=== PATIENT | male | born 1965 | race Caucasian/White ===

== ENCOUNTER 2018-10-18 09:49 | Inpatient (IN) ==
--- NOTE | 2018-10-18 10:02 | Emergency Department Note ---
Disposition Clinical Impression: Numbness and tingling, Weakness Disposition: Admitted As Inpatient Condition: Fair Time of Disposition: 18:16 General Adult HPI - General Chief complaint: ED Neuro Symptoms/Deficit Stated complaint: left side numbness Time Seen by Provider: 10/18/18 09:56 - Related Data Home Medications Medication Instructions Recorded Confirmed Gemfibrozil 10/18/18 PHENobarbital 32.4 mg PO BID 10/18/18 10/18/18 Allergies Allergy/AdvReac Type Severity Reaction Status Date / Time No Known Allergies Allergy Verified 10/18/18 10:10 Course Vital Signs Temperature 98.9 F 10/18/18 10:01 Pulse Rate 80 10/18/18 10:01 Respiratory Rate 16 10/18/18 10:01 Blood Pressure 158/107 10/18/18 10:01 O2 Sat by Pulse Oximetry 98 10/18/18 10:01 Temperature 98.0 F 10/18/18 17:44 Pulse Rate 72 10/18/18 17:44 Respiratory Rate 16 10/18/18 17:44 Blood Pressure 175/91 10/18/18 17:44 O2 Sat by Pulse Oximetry 96 10/18/18 17:44 Oxygen Delivery Oxygen Delivery Room Air Medical Decision Making - Lab Data Result diagrams: 10/18/18 10:13 10/18/18 10:13 Lab Results 10/18/18 10/18/18 10/18/18 Range/Units 09:57 10:13 10:13 WBC 11.0 (4.3-11.1) K/mcL RBC 4.83 (4.19-5.50) M/mcL Hgb 15.4 (12.9-16.9) g/dL Hct 44.4 (37.5-50.1) % MCV 91.9 (83.0-100.0) fL MCH 31.9 (28.0-33.3) pg MCHC 34.7 (31.6-35.5) g/dL RDW 12.8 (11.5-14.5) % Plt Count 318 (140-400) K/mcL MPV 9.7 (9.4-12.4) fL PT 12.5 H (9.4-12.1) Seconds INR 1.1 APTT 38.0 H (26.0-36.0) Seconds Sodium (136-145) mEq/L Potassium (3.5-5.1) mEq/L Chloride (98-107) mEq/L Carbon Dioxide (23-29) mEq/L BUN (6-20) mg/dL Creatinine (0.70-1.30) mg/dL Est GFR ( Amer) (> 60) Est GFR (Non-Af Amer) (> 60) BUN/Creatinine Ratio (6-26) Glucose (70-105) mg/dL POC Glucose 139 H (70-99) mg/dL Calculated Osmolality (280-300) Calcium (8.6-10.3) mg/dL Total Bilirubin (0.3-1.0) mg/dL Direct Bilirubin (0.0-0.2) mg/dL Indirect Bilirubin (0.0-1.2) mg/dL AST (13-39) Units/L ALT (7-52) Units/L Alkaline Phosphatase (34-104) Units/L Troponin I (< 0.04) ng/mL Serum Total Protein (6.4-8.9) g/dL Albumin (3.5-5.7) g/dL Globulin (2.4-3.5) g/dL Albumin/Globulin Ratio (1.1-2.2) 10/18/18/ Range/Units 10:13 10:13 WBC (4.3-11.1) K/mcL RBC (4.19-5.50) M/mcL Hgb (12.9-16.9) g/dL Hct (37.5-50.1) % MCV (83.0-100.0) fL MCH (28.0-33.3) pg MCHC (31.6-35.5) g/dL RDW (11.5-14.5) % Plt Count (140-400) K/mcL MPV (9.4-12.4) fL PT (9.4-12.1) Seconds INR APTT (26.0-36.0) Seconds Sodium 138 (136-145) mEq/L Potassium 3.9 (3.5-5.1) mEq/L Chloride 105 (98-107) mEq/L Carbon Dioxide 25 (23-29) mEq/L BUN 14 (6-20) mg/dL Creatinine 0.87 (0.70-1.30) mg/dL Est GFR ( Amer) > 60 (> 60) Est GFR (Non-Af Amer) > 60 (> 60) BUN/Creatinine Ratio 16 (6-26) Glucose 135 H (70-105) mg/dL POC Glucose (70-99) mg/dL Calculated Osmolality 289 (280-300) Calcium 9.8 (8.6-10.3) mg/dL Total Bilirubin 0.3 (0.3-1.0) mg/dL Direct Bilirubin 0.0 (0.0-0.2) mg/dL Indirect Bilirubin 0.3 (0.0-1.2) mg/dL AST 10 L (13-39) Units/L ALT 10 (7-52) Units/L Alkaline Phosphatase 132 H (34-104) Units/L Troponin I < 0.03 (< 0.04) ng/mL Serum Total Protein 7.5 (6.4-8.9) g/dL Albumin 4.7 (3.5-5.7) g/dL Globulin 2.8 (2.4-3.5) g/dL Albumin/Globulin Ratio 1.7 (1.1-2.2) Attestation Statement - Attestation Attestation: I reviewed the residents documentation and agree with the residents assessment and plan of care. I have personally had face to face time with the patient. (Brief History, Brief Exam, and MDM) I personally supervised and was present for the coreas/critical portions of the following procedures completed by the resident: (add procedures performed here). [id number] time provided Patient arrives in the care of family by EMS. He complains of numbness, ting ling "like my left side is asleep" that he noticed upon awakening 4 hours ago. He went to bed in a normal state of health 7 hours prior to arrival. The patient appears in no acute distress on exam. Stroke workup initiated without activation of a stroke alert 15:00: The patient has progression of his left-sided weakness. He now has decreased left upper extremity strength. Both the admitting neurologist and the admitting hospitalist are aware. Both the neurologist and the admitting hospita list have discussed the findings of the MRI and agreed to admit to our facility for further intervention
--- NOTE | 2018-10-18 10:22 | Emergency Department Note ---
Disposition Clinical Impression: Numbness and tingling, Weakness Disposition: Admitted As Inpatient Condition: Fair Forms: ED Satisfaction Letter Time of Disposition: 12:42 Neuro HPI - General Chief Complaint: ED Neuro Symptoms/Deficit Stated Complaint: left side numbness Time Seen by Provider: 10/18/18 09:56 Source: patient Mode of arrival: EMS Limitations: no limitations Nursing Notes Reviewed: Yes Vital Signs Reviewed: Yes - History of Present Illness HPI Narrative: Patient is a 53-year-old male whose presenting with new onset left-sided numbness and tingling. Patient with history of multiple brain masses requiring craniotomy 3 with the last intracranial resection in 2018. He is followed at [facility]. Patient states that he went to bed around approximately 0 300, at that point in time he had no left-sided numbness or tingling. He then woke up around 7:00 this morning, with new complete upper and lower left-sided weakness and numbness and tingling. He states that he was very concerned and therefore called his sibling who then called EMS. At this point in time he says he continues to have numbness and tingling. He states that he feels weak in general to the left side. He denies any progression of symptoms or change in symptoms since onset. No recent fall or trauma. He denies any vision changes or dysarthria. No history of stroke that he is aware of. He currently takes high cholesterol medications. - Related Data Allergies/Adverse Reactions: Allergies Allergy/AdvReac Type Severity Reaction Status Date / Time No Known Allergies Allergy Verified 10/18/18 10:10 All systems ED: reviewed and negative except as stated. Review of Systems: As Per HPI Constitutional: Denies: fever, chills ENT ED: Denies: congestion Cardiovascular: Denies: chest pain, palpitations, dyspnea on exertion, syncope Respiratory: Denies: cough, dyspnea, wheezes Gastrointestinal: Denies: abdominal pain, nausea, vomiting Genitourinary: Denies: dysuria Musculoskeletal: Denies: back pain Neurological: Reports: weakness, numbness, paresthesias. Denies: headache, confusion, vertigo Endocrine: Denies: fatigue Past Medical History - Past Medical History Medical history: Reports: hyperlipidemia, seizures Psychiatric history: Reports: no psych history - Social History Smoking Status: Current every day smoker Smokeless Tobacco Status: No Alcohol use: Reports: occasionally Drug use: Reports: none Physical Exam - General Limitations: no limitations General appearance: alert, in no apparent distress - Head Head exam: atraumatic, normocephalic, normal inspection - Eye Eye exam: Present: normal appearance, PERRL, EOMI - ENT ENT exam: normal exam, normal oropharynx, mucous membranes moist - Neck Neck exam: Present: normal inspection, full ROM, trachea midline - Chest Chest inspection: Present: normal inspection, symmetric chest wall rise - Respiratory Respiratory exam: Present: normal lung sounds bilaterally - Cardiovascular Cardiovascular exam: Present: regular rate, normal rhythm, normal heart sounds - Abdominal Exam Abdominal exam: Present: soft, Non-Tender. Absent: tenderness, distention, guarding, rebound, rigidity - Back Exam Back exam: Present: normal inspection, full ROM. Absent: tenderness - Neurological Exam Neurological exam: Present: alert, oriented X3 - Expanded Neurological Exam Patient oriented to: Present: person, place, time Speech: Present: fluid speech Cranial nerves: EOM function (II, III, IV, ): Normal, facial sensation (V): Normal, facial palsy (VII): Normal, spinal accessory function (XI): Normal, tongue deviation (XII): Normal Cerebellar function: finger to nose: Normal Motor strength - LUE: 4/5 Motor strength - RUE: 5/5 Motor strength - LLE: 5/5 Motor strength - RLE: 5/5 Upper motor neuron exam: jose neglect: Absent bilaterally, pronator drift: Ab sent bilaterally Sensory exam upper extremity: light touch: Normal Sensory exam lower extremity: light touch: Normal Coma Scale Eye Opening: Spontaneous Coma Scale Motor Response: Obeys Commands Coma Scale Verbal Response: Oriented Coma Scale Total: 15 - Psychiatric Psychiatric exam: Present: normal affect, normal mood - Skin Skin exam: Present: warm, dry, intact, normal color Course Vital Signs Temperature 98.9 F 10/18/18 10:01 Pulse Rate 80 10/18/18 10:01 Respiratory Rate 16 10/18/18 10:01 Blood Pressure 158/107 10/18/18 10:01 O2 Sat by Pulse Oximetry 98 10/18/18 10:01 Temperature 98.9 F 10/18/18 11:09 Pulse Rate 78 10/18/18 11:09 Respiratory Rate 19 10/18/18 11:09 Blood Pressure 161/100 10/18/18 11:09 O2 Sat by Pulse Oximetry 98 10/18/18 10:24 Oxygen Delivery Oxygen Delivery Room Air Neuro Symptoms/Deficit - MDM Narrative Medical decision making narrative: Patient is a 53-year-old male presenting with new onset left-sided numbness tingling and weakness. Patient with history of multiple craniotomies secondary to cranial tumors and masses. He currently follows with Dr. Nunez neurology at [place] for history of seizures as well as [facility] for history of intracranial masses. On arrival, patient has an NIH of 1, GCS of 15, patient is outside the TPA window his symptoms of last known well where at 0300. Patient was given aspirin. Patient had blood work performed which was relatively unremarkable. CT of the brain shows no acute intracranial infarct, heat there are multiple chr onic changes that are seen. I did assess the patient with neurology, giving consideration for significant past medical history, they do state that the patient is a candidate for admission at this point in time to [place]. Per request, a MRI of the brain as well as the cervical spine with and without contrast will be performed. This is to be followed up by the hospitalist and neurologist on upon admission. Patient was then admitted to hospitalist. - Medical Records Medical records reviewed: Yes I reviewed the patient's medical records. - Lab Data Lab results reviewed: Yes I reviewed the patient's lab results. Result diagrams: 10/18/18 10:13 10/18/18 10:13 Lab Results 10/18/18 10/18/18 10/18/18 Range/Units 10:13 10:13 10:13 WBC 11.0 (4.3-11.1) K/mcL RBC 4.83 (4.19-5.50) M/mcL Hgb 15.4 (12.9-16.9) g/dL Hct 44.4 (37.5-50.1) % MCV 91.9 (83.0-100.0) fL MCH 31.9 (28.0-33.3) pg MCHC 34.7 (31.6-35.5) g/dL RDW 12.8 (11.5-14.5) % Plt Count 318 (140-400) K/mcL MPV 9.7 (9.4-12.4) fL PT 12.5 H (9.4-12.1) Seconds INR 1.1 APTT 38.0 H (26.0-36.0) Seconds Sodium 138 (136-145) mEq/L Potassium 3.9 (3.5-5.1) mEq/L Chloride 105 (98-107) mEq/L Carbon Dioxide 25 (23-29) mEq/L BUN 14 (6-20) mg/dL Creatinine 0.87 (0.70-1.30) mg/dL Est GFR ( Amer) > 60 (> 60) Est GFR (Non-Af Amer) > 60 (> 60) BUN/Creatinine Ratio 16 (6-26) Glucose 135 H (70-105) mg/dL Calculated Osmolality 289 (280-300) Calcium 9.8 (8.6-10.3) mg/dL Total Bilirubin (0.3-1.0) mg/dL Direct Bilirubin (0.0-0.2) mg/dL Indirect Bilirubin (0.0-1.2) mg/dL AST (13-39) Units/L ALT (7-52) Units/L Alkaline Phosphatase (34-104) Units/L Troponin I < 0.03 (< 0.04) ng/mL Serum Total Protein (6.4-8.9) g/dL Albumin (3.5-5.7) g/dL Globulin (2.4-3.5) g/dL Albumin/Globulin Ratio (1.1-2.2) // Range/Units 10:13 WBC (4.3-11.1) K/mcL RBC (4.19-5.50) M/mcL Hgb (12.9-16.9) g/dL Hct (37.5-50.1) % MCV (83.0-100.0) fL MCH (28.0-33.3) pg MCHC (31.6-35.5) g/dL RDW (11.5-14.5) % Plt Count (140-400) K/mcL MPV (9.4-12.4) fL PT (9.4-12.1) Seconds INR APTT (26.0-36.0) Seconds Sodium (136-145) mEq/L Potassium (3.5-5.1) mEq/L Chloride (98-107) mEq/L Carbon Dioxide (23-29) mEq/L BUN (6-20) mg/dL Creatinine (0.70-1.30) mg/dL Est GFR ( Amer) (> 60) Est GFR (Non-Af Amer) (> 60) BUN/Creatinine Ratio (6-26) Glucose (70-105) mg/dL Calculated Osmolality (280-300) Calcium (8.6-10.3) mg/dL Total Bilirubin 0.3 (0.3-1.0) mg/dL Direct Bilirubin 0.0 (0.0-0.2) mg/dL Indirect Bilirubin 0.3 (0.0-1.2) mg/dL AST 10 L (13-39) Units/L ALT 10 (7-52) Units/L Alkaline Phosphatase 132 H (34-104) Units/L Troponin I (< 0.04) ng/mL Serum Total Protein 7.5 (6.4-8.9) g/dL Albumin 4.7 (3.5-5.7) g/dL Globulin 2.8 (2.4-3.5) g/dL Albumin/Globulin Ratio 1.7 (1.1-2.2) - Radiology Data Radiology results reviewed: Yes I reviewed the patient's radiology results. Head CT 10/18/18 10:00 IMPRESSION: Interval left parietal craniotomy and resection of the previously described extra-axial mass. Subjacent white matter gliosis and encephalomalacia. Otherwise stable examination demonstrating cerebral and cerebellar parenchymal calcifications. 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 Chronic expansion of the posterior right lateral ventricle and occipital horn. Stable intraosseous expansile lesion within the right parietal bone. D/ / Nas Oritz MD / Nas Ortiz MD Interpreting Provider: Nas Ortiz MD - EKG Data EKG attestation: Yes I reviewed and interpreted this EKG. NIH Stroke Scale - Level of Consciousness LOC: Alert - LOC Questions LOC Questions: Answers both correctly - LOC Commands LOC Commands: Performs both correctly - Best Gaze Best Gaze: Normal - Visual Visual: No visual loss - Facial Palsy Facial Palsy: Normal - Motor Arms Motor Arm-Left: Drift, does NOT hit bed Motor Arm-Right: No drift for 10 seconds - Motor Legs Motor Leg-Left: No drift for 5 seconds Motor Leg-Right: No drift for 5 seconds - Limb Ataxia Limb Ataxia: Absent of affected limb too weak to perform exam - Sensory Sensory: Normal - Best Language Best Language: No aphasia - Dysarthria Dysarthria: Normal - Extinction and Inattention Extinction and Inattention: Normal - NIHSS Total Score NIHSS Total Score: 1 TPA Checklist - LKW: 3-4.5 hrs Add. Warnings/Precautions Patient/family understanding: The patient/family members have been counseled and understood the risk, benefit, and alternatives of treatment.
[2018-10-18 10:26] LABS: Hematocrit 44.4 % (37.5-50.1); Hemoglobin 15.4 g/dL (12.9-16.9); Mean Corpuscular HGB Conc 34.7 g/dL (31.6-35.5); Mean Corpuscular Hemoglobin 31.9 pg (28.0-33.3); Mean Corpuscular Volume 91.9 fL (83.0-100.0); Mean Platelet Volume 9.7 fL (9.4-12.4); Platelet Count 318 K/mcL (140-400); Red Blood Count 4.83 M/mcL (4.19-5.50); Red Cell Distribution Width 12.8 % (11.5-14.5)
[2018-10-18 10:34] LABS: INR 1.1; Prothrombin Time 12.5 Seconds (9.4-12.1)
[2018-10-18 10:45] LABS: Albumin 4.7 g/dL (3.5-5.7); Albumin/Globulin Ratio 1.7 (1.1-2.2); Bilirubin,Indirect 0.3 mg/dL (0.0-1.2); Bilirubin,Total 0.3 mg/dL (0.3-1.0); Globulin 2.8 g/dL (2.4-3.5); Total Protein 7.5 g/dL (6.4-8.9)
[2018-10-18 10:47] LABS: BUN/Creatinine Ratio 16 (6-26); Blood Urea Nitrogen 14 mg/dL (6-20); Calcium 9.8 mg/dL (8.6-10.3); Carbon Dioxide 25 mEq/L (23-29); Chloride 105 mEq/L (98-107); Glucose 135 mg/dL (70-105); Osmolality,Calculated 289 (280-300); Potassium 3.9 mEq/L (3.5-5.1); Sodium 138 mEq/L (136-145); eGFR For African Americans > 60 (> 60); eGFR For Non-African Americans > 60 (> 60)
[2018-10-18 10:50] LABS: Troponin I < 0.03 ng/mL (< 0.04)
[2018-10-18] MEDS ORDERED: Aspirin 81 MG TAB.CHEW PO ONE (11:21)
[2018-10-18] MEDS ORDERED: Gadolinium Contrast Agent (WT Based) IV PRN (12:03)
--- NOTE | 2018-10-18 14:49 | Neurology - Consult Note ---
Date of Encounter: 10/18/18 Time of Encounter: 14:49 Assessment and Plan (1) Acute CVA (cerebrovascular accident) Current Visit: Yes Status: Acute Neurology consulted for acute CVA. Etiology: small vessel ischemia Patient presented with parasthesias, LUE, and LLE weakness first noticed at 0700 today; LKW 0300 this a.m. The patient has an extensive medical hx including brain tumor and meningioma with resection and craniotomy [address] [facility] Neuro exam confirms left sided motor deficits with strength 3/5. He is able to overcome gravity but not resistance. No further focal deficits found MRI positive for a small acute infarct involving the right periventricular white matter extending along the right external capsule. No mass effect, hemorrhage or midline shift; the rest of the MRI is as follows The patient is aspirin naive; we will be starting ASA 81 mg by mouth daily now Start simvastatin c/w neurological assessments per CVA protocol Allow permissive HTN with goal SBP of less than 170 Neurology is recommending TTE and Carotid Duplex scans Dysphagia screen; NPO in the meantime Rec social work nurse consult Rec PT/OT consult; may benefit from inpatient rehab given Lt sided deficits Strongly encourage risk factor modifications MR/MR head/brain wo/w con IMPRESSION: 1. Small acute infarct involving the right periventricular white matter extending along the right external capsule. No significant mass effect or midline shift. 2. Interval resection of the is the extra-axial enhancing mass along the left parietal convexity with postsurgical changes in this region. 3. Slight interval increase in size involving the extra-axial mass along the left frontal convexity as well as at the mass involving the right temporal calvarium. 4. Cystic encephalomalacia involving the right posterior cerebral hemisphere, which is similar to the prior exam. 5. Unchanged area of intrinsic T1 hyperintensity involving the left thalamus. History of Present Illness Chief complaint: acute CVA HPI: Mr. Veronica is a 53 year old male with a PMH of multiple brain tumors requiring surgical resection and craniotomy 3. He presents to [facility] today with left upper and left lower extremity weakness as well as paresthesias in the left side. His last known well was 03 100 this morning. He reports awaking approximately 7 AM with left-sided weakness reporting "I was unable to lift my leg up off the floor when attempting to walk to the bathroom". He states that he did not have any prodromal symptoms prior to going to bed last night. He denies any falls, head or neck trauma, recent illnesses, weight loss, visual disturbances, facial asymmetry, head or neck pain, headaches, limit her memory dysfunction, chest pain, palpitations or hypertensive events. At the time of my assessment the left-sided weakness persists and is concerning for an acute CVA. A stroke alert was not called and the patient was not a TPA candidate as he appears to be outside of the window for intervention. His vital signs are stable, the CBC and chemistry appear unremarkable. CT of the head was completed in the ED showing chronic postsurgical changes with some adjacent white matter gliosis and encephalomalacia but is overall he still examination demonstrating cerebellar and cerebral parenchymal calcifications, stable left extra-axial dural-based lesion within the left parietotemporal region, chronic expansion posterior right lateral ventricle and occipital morning and a stable intraosseous expansile lesion in the right parietal bone. Neurology will continue to follow and provide support and recommendations for acute CVA. Thank you for consulting [facility]. Past Med Surg Social Fam HX - Past Medical History Medical history: hyperlipidemia, seizures Psychiatric history: no psych history - Past Surgical History Additional surgical history: tumor removal October 2017 right - Social History Smoking Status: Current every day smoker Smokeless Tobacco Status: No Alcohol use: occasionally Drug use: none Medications and Allergies Gemfibrozil 10/18/18 [History] PHENobarbital 32.4 mg PO BID 10/18/18 [History] Allergy/AdvReac Type Severity Reaction Status Date / Time No Known Allergies Allergy Verified 10/18/18 10:10 All Systems: The remainder of the systems were reviewed and are negative Review of Systems: REVIEW OF SYSTEMS NEUROLOGIC: Negative for any blurry vision, blind spots, double vision, facial asymmetry, dysphagia, dysarthria, hemiparesis, hemisensory deficits, tingling, numbness Positive-LUE, LLE weakness without sensory loss. HEENT: Negative for any head trauma, neck trauma, neck stiffness CARDIAC: Negative for any chest pain, dyspnea, peripheral edema or palpitations MUSCULOSKELETAL: Positive left sided weakness and decreased activity tolerance Physical Examination - Vital Signs Vital Signs: Initial Vital Signs Temp Pulse Resp BP Pulse Ox 98.9 F 80 16 158/107 98 10/18/18 10:01 10/18/18 10:10/18/18 10:10/18/18 10:01 10/18/18 10:01 - Exam Exam: Examination: General Examination: *CONSTITUTIONAL: Alert and oriented x3, no acute distress *GENERAL APPEARANCE OF PATIENT ill appearing male who appears older than stated age *EYES: pupils equal, round, reactive to light and accommodation, conjunctiva clear without masses or ulcerations, fundi normal. *CARDIOVASCULAR no peripheral edema, distal temperature normal, dorsalis pedis pulses normal. See vitals Musculoskeletal: *GAIT AND STATION deferred *ASSESSMENT OF MUSCLE STRENGTH IN THE UPPER AND LOWER EXTREMITIES right deltoid, bicep, tricep, workforce management coordinator strength, hip flexors ,anterior tibialis, dorsoflexion of the foot 4/5. - - Left deltoid, bicep, tricep, are flaccid with diminished workforce management coordinator strength, Lt hip flexors ,anterior tibialis, dorsoflexion of the foot 3/5 *MUSCLE TONE IN THE UPPER AND LOWER EXTREMITIES Lt arm is flaccidNo abnormal movements, fasciculations or atrophy identified. Neurological: *ORIENTATION to person, situation, time and place *RECURRENT AND REMOTE MEMORY intact *ATTENTION AND CONCENTRATION are normal *LANGUAGE FUNCTION no significant aphasia or dysarthia was noted. *FUND OF KNOWLEDGE aware of current events, past history, vocabulary *MENTAL attention span and concentration normal. *CN II optic fundi were normal, no papilledema noted. *CN III,IV, PERRLA extraocular eye movements were full, no nystagmus and no ptosis noted. Peripheral vision loss on the left side which is chronic *CN V shows normal sensation. Slight left facial droop *CN VII facial movement asymmetrically with decreased left sided innervation, upper and lower bilaterally. *CN VIII shows no significant hearing loss on exam *CN IX,,X palate elevated symmetrically *CN XI normal strength in the sternocleidomastoid muscles. Shoulder shrug was asymmetrical with left weakness *CN XII tongue protruded in the midline, with normal strength and movement. *SENSORY EXAMINATION light touch intact *REFLEXES: deep tendon reflexes were normal and symmetrical , grade 1/4 diffusely, no pathological reflexes were noted. *CEREBELLAR TESTING abnormal finger to nose; dysmetric when attempting to perform finger to nose with LUE, have normal heel/knee/valdivia; dysmetric noted and LLE *PAIN LEVEL 0/10 Results - Laboratory Findings CBC and BMP: 10/18/18 10:13 10/18/18 10:13 Abnormal lab findings: Abnormal lab results PT 12.5 Seconds (9.4-12.1) H 10/18/18 10:13 APTT 38.0 Seconds (26.0-36.0) H 10/18/18 10:13 Glucose 135 mg/dL (70-105) H 10/18/18 10:13 AST 10 Units/L (13-39) L 10/18/18 10:13 132 Units/L (34-104) H 10/18/18 10:13 - Diagnostic Findings Additional findings: MR/MR head/brain wo/w con IMPRESSION: 1. Small acute infarct involving the right periventricular white matter extending along the right external capsule. No significant mass effect or midline shift. 2. Interval resection of the is the extra-axial enhancing mass along the left parietal convexity with postsurgical changes in this region. 3. Slight interval increase in size involving the extra-axial mass along the left frontal convexity as well as at the mass involving the right temporal calvarium. 4. Cystic encephalomalacia involving the right posterior cerebral hemisphere, which is similar to the prior exam. 5. Unchanged area of intrinsic T1 hyperintensity involving the left thalamus. These results were sent to [facility] on MR/MR cervical spine wo/w con IMPRESSION: 1. No acute abnormality of the cervical spine. 2. Narrowing of the right C4 through C7 neural foramina greatest involving the right C5 neural foramina where it is moderate. 3. No spinal canal stenosis or left neural foraminal narrowing. Consult Discharge Plan - Plan Referrals: Kati Schofield, CHARISSA [Primary Care Provider] -
--- NOTE | 2018-10-18 15:44 | Internal Med History&Physical ---
Date of Encounter: 10/18/18 Time of Encounter: 15:44 Internal Medicine - H&P: HPI Chief complaint: left side weekness. History of present illness: Patient is a 53-year-old male with a past medical history of multiple brain tumor requiring craniotomy at [facility] who presented to the ER with new onset of left arm and left lower extremity numbness and tingling that later evolved to left side weakness. The patient denies vision changes, difficulty with speech, lost control of urine or stool. The patient was evaluated by the ER staff and since the patient is out of the window for thrombolytics, stroke alert was not called. A CT scan of the head was obtained and revealed Interval left parietal craniotomy and resection of the previously described extra-axial mass. Subjacent white matter gliosis and encephalomalacia. Stable left extra- axial dural-based lesion within the left parietotemporal region, stable intraosseous expansile lesion within the right parietal bone. Given the extensive neurological history of the patient, and the concern the patient might need to be transferred to [facility], neurology was consulted by the ER staff to evaluate the patient and decide on the necessity of transferring the patient. Neurology consult responded promptly to the bedside, conduct a full physical exam and advised MRI of the brain for further evaluation and decision making. MRI of the brain revealed Small acute infarct involving the right periventr icular white matter extending along the right external capsule. No significant mass effect or midline shift.,interval resection of the is the extra-axial enhancing mass along the left parietal convexity with postsurgical changes in this region, Slight interval increase in size involving the extra-axial mass along the left frontal convexity as well as at the mass involving the right temporal calvarium. Both myself and then NEUROLOGY have a long conversation with the patient at the bedside explaining the findingS on MRI, they agree that the current CVA diagnoses can be managed at [facility]. We explained that there is Slight interval increase in size involving the extra-axial mass and also explain that Neurosurgery service are not available at [facility] to further evaluate or manage the new finding on the MRI, both the patient and his sister expressed their wishes to stay within the [place] system and they stated that they have an appointment with the neurosurgery for follow-up in January. The sister stating that she is planning to call them and make an earlier appointment for follow-up. Both of the sister, the patient was agreeable to the plan of care, they had a chance to ask questions and final decision was made based on their input and wishes to not to transfer the patient and continue CVA management as per protocol. Past Med Surg Social Fam HX - Past Medical History Medical history: hyperlipidemia, seizures Psychiatric history: no psych history - Past Surgical History Additional surgical history: tumor removal October 2017 right - Social History Smoking Status: Current every day smoker Smokeless Tobacco Status: No Alcohol use: occasionally Drug use: none - Family History Mother Hx Family Medical Disorders: Yes (rheumatic fever) Father Hx Family Medical Disorders: Yes (rheumatic fever) Internal Medicine - H&P: Meds Gemfibrozil 10/18/18 [History] PHENobarbital 32.4 mg PO BID 10/18/18 [History] Allergy/AdvReac Type Severity Reaction Status Date / Time No Known Allergies Allergy Verified 10/18/18 10:10 All Systems PM: A 10-system review of systems was performed and is negative for pertinent findings except as documented above in the HPI. - Constitutional Vitals: Temp Pulse Resp BP Pulse Ox 98.9 F 79 16 152/98 97 10/18/18 15:14 10/18/18 15:14 10/18/18 15:14 10/18/18 15:14 10/18/18 14:35 General appearance: Present: A&O X 3 Exam: ` - Head Head exam: Present: atraumatic, normocephalic - Neck Neck exam general surgery: Present: supple, trachea midline. Absent: lymphadenopathy - Respiratory Respiratory exam: Present: CTAB. Absent: accessory muscle use, rales, rhonchi, wheezes - Cardiovascular Cardiovascular exam: Present: RRR, +S1, +S2. Absent: diastolic murmur, gallop, rubs, systolic murmur - GI/Abdominal GI/Abdominal exam: Present: normal bowel sounds, soft, no peritoneal signs. Absent: distended, tenderness - Extremities Exam Extremities exam: Present: warm, radial pulses palpable and symmetrical. Absent: calf tenderness, cyanotic, pedal edema - Neurological Exam Neurological exam: Present: CN II-XII intact, oriented X3. Absent: facial droop, speech deficit Additional comments: left sided weakness with strength 3/5 Internal Med - H&P Results - Labs CBC & Chem 7: 10/19/18 02:52 10/19/18 02:52 Labs: Short CBC 10/18/18 Range/Units 10:13 WBC 11.0 (4.3-11.1) K/mcL Hgb 15.4 (12.9-16.9) g/dL Hct 44.4 (37.5-50.1) % Plt Count 318 (140-400) K/mcL BMP 10/18/18 10:13 Sodium 138 Potassium 3.9 Chloride 105 Carbon Dioxide 25 BUN 14 Creatinine 0.87 Glucose 135 H Calcium 9.8 Cardiac Enzymes 10/18/18 Range/Units 10:13 Troponin I < 0.03 (< 0.04) ng/mL Liver Function 10/18/18 Range/Units 10:13 Total Bilirubin 0.3 (0.3-1.0) mg/dL Direct Bilirubin 0.0 (0.0-0.2) mg/dL AST 10 L (13-39) Units/L ALT 10 (7-52) Units/L Alkaline Phosphatase 132 H (34-104) Units/L Albumin 4.7 (3.5-5.7) g/dL - Impressions ITS Impressions Head CT 10/18/18 10:00 IMPRESSION: Interval left parietal craniotomy and resection of the previously described extra-axial mass. Subjacent white matter gliosis and encephalomalacia. Otherwise stable examination demonstrating cerebral and cerebellar parenchymal calcifications. 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 Chronic expansion of the posterior right lateral ventricle and occipital horn. Stable intraosseous expansile lesion within the right parietal bone. D/ / Nas Ortiz MD / Nas Ortiz MD Interpreting Provider: Nas Ortiz MD Brain MRI 10/18/18 12:03 IMPRESSION: 1. Small acute infarct involving the right periventricular white matter extending along the right external capsule. No significant mass effect or midline shift. 2. Interval resection of the is the extra-axial enhancing mass along the left parietal convexity with postsurgical changes in this region. 3. Slight interval increase in size involving the extra-axial mass along the left frontal convexity as well as at the mass involving the right temporal calvarium. 4. Cystic encephalomalacia involving the right posterior cerebral hemisphere, which is similar to the prior exam. 5. Unchanged area of intrinsic T1 hyperintensity involving the left thalamus. These results were sent to the [facility] ([facility]) on 10/18/2018 at 2:19 pm to be communicated to the referring/covering health care provider/office. D/ / Devonte Muller MD / Devonte Muller MD Interpreting Provider: Devonte Muller MD Cervical Spine MRI 10/18/18 12:07 IMPRESSION: 1. No acute abnormality of the cervical spine. 2. Narrowing of the right C4 through C7 neural foramina greatest involving the right C5 neural foramina where it is moderate. 3. No spinal canal stenosis or left neural foraminal narrowing. D/ / Pablo Smith / Pablo Smith Interpreting Provider: Pablo Smith - Assessment and Plan (1) Acute CVA (cerebrovascular accident) Current Visit: Yes Status: Acute Assessment and plan: - The patient was evaluated by the ER staff and since the patient is out of the window for thrombolytics, stroke alert was not called. - A CT scan of the head was obtained and revealed Interval left parietal craniotomy and resection of the previously described extra-axial mass. Subjacent white matter gliosis and encephalomalacia. Stable left extra-axial dural-based lesion within the left parietotemporal region, stable intraosseous expansile lesion within the right parietal bone. - Neurology consulted in the ER and MRI was ordered. - MRI of the brain revealed Small acute infarct involving the right periventri cular white matter extending along the right external capsule. No significant mass effect or midline shift.,interval resection of the is the extra-axial enhancing mass along the left parietal convexity with postsurgical changes in this region, Slight interval increase in size involving the extra-axial mass along the left frontal convexity as well as at the mass involving the right temporal calvarium. - Both of the sister, the patient was agreeable to the plan of care, they had a chance to ask questions and final decision was made based on their input and wishes to not to transfer the patient and continue CVA management as per protocol. - ECHO - Carotid Doppler - Aspirin , statin - PT/OT consult (2) Brain tumor Current Visit: Yes Status: Acute Assessment and plan: Past medical history of multiple brain tumor requiring craniotomy at [facility], MRI revealed Slight interval increase in size involving the extra-axial mass along the left frontal convexity as well as at the mass involving the right temporal calvarium. The sister stating that she is planning to call [facility] and make an earlier appointment for follow-up. We will Cont seizure prophylaxis meds when pass bed side swallow evaluation. - Time Spent With Patient Total time spent is greater than 50% in coordination of care (as documented) at patient's floor/unit and/or counseling patient:
--- NOTE | 2018-10-18 17:23 | Electrocardiograph Report ---
[place] [id number] Test Date: 2018-10-18 Pat Name: Jefferson Veronica Department: EXAM20 Room: 3B47 Gender: M Director Of Cardiac Cath Lab: : [id number] Requested By: Romeo Gonzalez Order Number: [id number] Reading MD: Lamar Tan Measurements Intervals [place] Rate: 77 P: 38 SD: 173 QRS: 31 QRSD: 94 T: 17 QT: 365 QTc: 413 Interpretive Statements Sinus rhythm Abnormal R-wave progression, early transition Electronically Signed On 10-18-2018 17:21:57 EDT by Lamar Tan
[2018-10-18] MEDS ORDERED: Ondansetron 4 MG/2 ML VIAL IVP PRN (18:09)
[2018-10-18] MEDS ORDERED: Naloxone 0.4 MG/ML INJ IVP PRN (18:09)
[2018-10-19 03:52] LABS: Basophils # 0.1 K/mcL (0.0-0.2); Basophils % 0.8 %; Eosinophils # 0.2 K/mcL (0.0-0.6); Eosinophils % 1.5 %; Hemoglobin 15.1 g/dL (12.9-16.9); Immature Granulocytes % 0.3 % (0-4); Lymphocytes # 3.7 K/mcL (0.6-4.6); Mean Corpuscular HGB Conc 34.3 g/dL (31.6-35.5); Mean Corpuscular Hemoglobin 31.6 pg (28.0-33.3); Mean Corpuscular Volume 92.1 fL (83.0-100.0); Mean Platelet Volume 10.2 fL (9.4-12.4); Monocytes # 1.1 K/mcL (0.0-1.3); Monocytes % 8.7 %; Neutrophils # 7.2 K/mcL (1.6-8.9); Platelet Count 310 K/mcL (140-400); Red Blood Count 4.78 M/mcL (4.19-5.50); Segmented Neutrophils % 58.7 %; White Blood Count 12.3 K/mcL (4.3-11.1)
[2018-10-19 04:01] LABS: INR 1.1; Prothrombin Time 12.9 Seconds (9.4-12.1)
[2018-10-19 04:03] LABS: Activated Partial Thrombo Time 38.6 Seconds (26.0-36.0)
[2018-10-19 04:04] LABS: Chol/HDL Ratio 4.4 (0-4.9); Cholesterol 161 mg/dL (< 200); HDL Cholesterol 37 mg/dL (40-59); LDL Cholesterol,Calculated 96 mg/dL (0-99); Triglycerides 139 mg/dL (< 150)
[2018-10-19 04:05] LABS: Alanine Aminotransferase 9 Units/L (7-52); Albumin 4.3 g/dL (3.5-5.7); Albumin/Globulin Ratio 1.6 (1.1-2.2); Alkaline Phosphatase 113 Units/L (34-104); Aspartate Amino Transferase 10 Units/L (13-39); BUN/Creatinine Ratio 13 (6-26); Bilirubin,Total 0.5 mg/dL (0.3-1.0); Blood Urea Nitrogen 11 mg/dL (6-20); Calcium 9.5 mg/dL (8.6-10.3); Carbon Dioxide 23 mEq/L (23-29); Chloride 106 mEq/L (98-107); Chol/HDL Ratio 4.4 (0-4.9); Cholesterol 159 mg/dL (< 200); Globulin 2.7 g/dL (2.4-3.5); Glucose 95 mg/dL (70-105); HDL Cholesterol 36 mg/dL (40-59); LDL Cholesterol,Calculated 96 mg/dL (0-99); Magnesium 2.1 mg/dL (1.6-2.6); Osmolality,Calculated 287 (280-300); Phosphorous 3.8 mg/dL (2.7-4.5); Potassium 3.8 mEq/L (3.5-5.1); Sodium 139 mEq/L (136-145); Triglycerides 137 mg/dL (< 150); Troponin I < 0.03 ng/mL (< 0.04); eGFR For African Americans > 60 (> 60); eGFR For Non-African Americans > 60 (> 60)
[2018-10-19] MEDS: Nicotine 21 MG PATCH.TD24 TD SCH (04:17)
[2018-10-19 08:58] LABS: Estimated Average Glucose 117 mg/dl
[2018-10-19] MEDS: Aspirin 81 MG TAB.CHEW PO SCH (09:26)
[2018-10-19] MEDS ORDERED: PHENobarbital 32.4 MG TABLET PO SCH (09:45)
[2018-10-19] MEDS ORDERED: *HR* Heparin 5,000 UNIT/ML VIAL SQ SCH (10:00)
--- NOTE | 2018-10-19 10:07 | Neurology Progress Note ---
Date of Encounter: 10/19/18 Time of Encounter: 09:48 Assessment and Plan (1) Acute CVA (cerebrovascular accident) Current Visit: Yes Status: Acute Clinically, the patient remained stable overnight. There are no new neurological deficits on today's exam. The left upper extremity flaccidity persists. In regards to the left leg strength deficit this appears to have improved overnight. The patient appears to have had an acute CVA in the periventricular white matter extending into the right external capsule. This is most likely a small vessel ischemic event. At this juncture we recommend continuing aspirin and statin medications. I discussed aggressive risk factor modification strategies. Given the extent of the patient's neurological defici ts I suspect that he will most likely need inpatient rehabilitation. Continue to recommend PT/OT consultation and social services designee consultation for discharge planning. In regards to the extra-axial enhancing mass along the left parietal convexity with slight increase in size in the mass involving the right temporal calvarium who recommend the patient follow up with his neurosurgeon at [facility]. The patient and sister both report that he has a follow-up scheduled. They have been instructed to call upon discharge to see if they can follow up sooner. However, this juncture there does not appear to be any urgent need just close monitoring. Subjective Principal diagnosis: Acute CVA Interval history: The patient was seen in follow-up for an acute CVA. In brief, this is a 53-year-old male with complicated medical history including brain tumors and meningiomas. He presented yesterday with left-sided motor deficits, left facial droop. MRI positive for small infarct involving the right periventricular white matter extending along the right internal capsule without hemorrhage, mass effect or midline shift. The patient was seen and examined at the bedside this morning. There are no further neurological deficits found on today's exam. He continues to persist with flaccidity of the left arm. The left leg weakness is improving however. At this juncture the carotid duplex scan and echocardiogram still need to be completed. Further recommendations are pending completion of the workup. Objective - Constitutional Vitals: Temp Pulse Resp BP Pulse Ox 97.6 F 76 16 161/81 93 10/19/18 07:29 10/19/18 07:29 10/19/18 07:29 10/19/18 07:29 10/19/18 07:29 Exam: Examination: General Examination: *CONSTITUTIONAL: Alert and oriented x3, no acute distress *GENERAL APPEARANCE OF PATIENT ill appearing male who appears older than stated age *EYES: pupils equal, round, reactive to light and accommodation, conjunctiva clear *CARDIOVASCULAR no peripheral edema, distal temperature normal, dorsalis pedis pulses normal. See vitals Musculoskeletal: *GAIT AND STATION deferred *ASSESSMENT OF MUSCLE STRENGTH IN THE UPPER AND LOWER EXTREMITIES right deltoid, bicep, tricep, caravan park and camping ground manager strength, hip flexors ,anterior tibialis, dorsoflexion of the foot 4/5. - - Left deltoid, bicep, tricep, are flaccid with diminished caravan park and camping ground manager strength. - - Lt hip flexors ,anterior tibialis, dorsoflexion of the foot 3/5 *MUSCLE TONE IN THE UPPER AND LOWER EXTREMITIES Lt arm is flaccid. No abnormal movements Neurological: *ORIENTATION to person, situation, time and place *RECURRENT AND REMOTE MEMORY intact *ATTENTION AND CONCENTRATION are normal *LANGUAGE FUNCTION no significant aphasia or dysarthia was noted. *FUND OF KNOWLEDGE aware of current events, past history, vocabulary *MENTAL attention span and concentration normal. *CN II optic fundi were normal, no papilledema noted. *CN III,IV, PERRLA extraocular eye movements were full, no nystagmus and no ptosis noted. Peripheral vision loss on the left side which is chronic *CN V shows normal sensation. Slight left facial droop *CN VII facial movement asymmetrically with decreased left sided innervation, upper and lower bilaterally. *CN VIII shows no significant hearing loss on exam *CN IX,,X palate elevated symmetrically *CN XI normal strength in the sternocleidomastoid muscles. Shoulder shrug was asymmetrical with left weakness *CN XII tongue protruded in the midline, with normal strength and move ment. *SENSORY EXAMINATION light touch intact *REFLEXES: deep tendon reflexes were normal and symmetrical , grade 1/4 diffusely, no pathological reflexes were noted. *CEREBELLAR TESTING abnormal finger to nose; dysmetric when attempting to perform finger to nose with LUE, have normal heel/knee/valdivia; dysmetric noted and LLE *PAIN LEVEL 0/10 Results - Laboratory Findings CBC and BMP: 10/19/18 02:52 10/19/18 02:52 Abnormal lab findings: Abnormal lab results WBC 12.3 K/mcL (4.3-11.1) H 10/19/18 02:52 PT 12.9 Seconds (9.4-12.1) H 10/19/18 02:52 APTT 38.6 Seconds (26.0-36.0) H 10/19/18 02:52 Glucose 135 mg/dL (70-105) H 10/18/18 10:13 POC Glucose 139 mg/dL (70-99) H 10/18/18 09:57 5.7 % (-5.6) H 10/19/18 02:52 AST 10 Units/L (13-39) L 10/19/18 02:52 113 Units/L (34-104) H 10/19/18 02:52 36 mg/dL (40-59) L 10/19/18 02:52 37 mg/dL (40-59) L 10/19/18 02:52 Consult Discharge Plan - Plan Referrals: Kati Schofield, CHARISSA [Primary Care Provider] -
[2018-10-19] MEDS: PHENobarbital 32.4 MG TABLET PO SCH ×2 (11:17→20:25)
--- NOTE | 2018-10-19 15:03 | Internal Med Progress Note ---
Hospitalist Progress Note - Encounter Date of Encounter: 10/19/18 Time of Encounter: 14:30 - Subjective Interval History: Mr. 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 He CT of head did not show any acute abnormalities other than chronic postsurgical changes with some adjacent white matter gliosis and encephalomalacia. He did go for MRI of Brain which showed acute CVA involving the right periventricular white matter extending along the right external capsule He was admitted in the hospital placed him on flooring installer. Continued Neuro checks. he is more alert, awake and O x 3. Pt still have significant weakness in left upper extremity and lower extremity. - Exam Vitals: Temp Pulse Resp BP Pulse Ox 99.5 F 83 16 169/91 95 10/19/18 11:51 10/19/18 11:51 10/19/18 11:51 10/19/18 11:51 10/19/18 11:51 Exam: Gen: Alert, awake, Oriented to time,place and person Chest: Diminished breath sounds B/L, No wheezing, No crackles, No rales Heart: S1S2+ RRR No murmurs Abd: Soft, NT, BS +, No organomegaly Ext: trace edema, pulses are palpable, No calf tenderness Neuro : Left UE / LE motor strength 2/5. No loss of sensation. Normal strength in Rt UE/ LE Skin: No rash. - Assessment and Plan (1) Acute CVA (cerebrovascular accident) Current Visit: Yes Status: Acute Assessment and Plan: MRI showed Small acute infarct involving the right periventricular white matter extending along the right external capsule He is ASA naive.. so started him on ASA 81 mg He was not a candidate for tPA due to his prolonged duration of symptoms before he presented to ER Started him on Lipitor 80mg Reviewed FLP - LDL @ 96 PT / OT eval Reviewed 2 D Echo showed LVEF 60-65%, Rt to Left shunt Consulted Card for PAMELA NPO after mid night appreciate neurology recommendations Patient does need to stay in the hospital more than 2 midnights due to his co mplex medical problems. So we will change him to full admission today. I did review my colleague Dr. Mota's H & P including HPI, PMH, PSH, FH, SH, and ROS no changes noticed (2) Brain tumor Current Visit: Yes Status: Acute Assessment and Plan: Past medical history of multiple brain tumor requiring craniotomy at [facility], MRI revealed Slight interval increase in size involving the extra-axial mass along the left frontal convexity as well as at the mass involving the right temporal calvarium. The sister stating that she is planning to call [facility] and make an earlier appointment for follow-up. resumed home seizure prophylaxis meds - Time Spent with Patient Total time spent is greater than 50% in coordination of care (as documented) at patient's floor/unit and/or counseling patient: Internal Medicine: Result - Labs CBC & Chem 7: 10/19/18 02:52 10/19/18 02:52 Labs: Short CBC 10/19/18 Range/Units 02:52 WBC 12.3 H (4.3-11.1) K/mcL Hgb 15.1 (12.9-16.9) g/dL Hct 44.0 (37.5-50.1) % Plt Count 310 (140-400) K/mcL Neutrophils # 7.2 (1.6-8.9) K/mcL BMP 10/19/18 02:52 Sodium 139 Potassium 3.8 Chloride 106 Carbon Dioxide 23 BUN 11 Creatinine 0.86 Glucose 95 Calcium 9.5 Cardiac Enzymes 10/19/18 Range/Units 02:52 Troponin I < 0.03 (< 0.04) ng/mL Liver Function 10/19/18 Range/Units 02:52 Total Bilirubin 0.5 (0.3-1.0) mg/dL AST 10 L (13-39) Units/L ALT 9 (7-52) Units/L Alkaline Phosphatase 113 H (34-104) Units/L Albumin 4.3 (3.5-5.7) g/dL - ABG Interpretation ABG results: PT/INR, D-dimer PT 12.9 Seconds (9.4-12.1) H 10/19/18 02:52 - Impressions Impressions Echocardiogram 10/19/18 07:09 Impressions: LVEF 60-65%. Normal LV chamber size and function. Mild asymmetric hypertrophy of the basal septum. Mild left ventricular diastolic dysfunction. Normal right ventricular structure and function. Suboptimal image quality for agitated saline study. Appearance of agitated saline noted in the left-sided chambers, consistent with a right to left shunt. However, image quality does not clearly identify if intra-cardiac or pulmonary level shunt. Earliest appearance of agitated saline in the left atrium is noticeable around 5 beats after injection, which would favor pulmonary level. No evidence of pulmonary hypertension. No significant valvular dysfunction. Consider PAMELA for better evaluation of level of shunt if clinically indicated. Left Ventricular Wall Motion: Rest Echo Findings All wall segments showed normal motion. Findings: Study Quality * Technically sub-optimal due to poor echocardiographic windows. ECG Findings * Normal sinus rhythm. Left Ventricle * LVEF 60-65%. * Normal LV chamber size and function. * Mild asymmetric hypertrophy of the basal septum. * Mild left ventricular diastolic dysfunction. Right Ventricle * Normal right ventricular structure and function. Left Atrium * Normal left atrial size. Right Atrium * Normal right atrial size. Interatrial Septum * Suboptimal image quality for agitated saline study. Appearance of agitated saline noted in the left-sided chambers, consistent with a right to left shunt. However, image quality does not clearly identify if intra-cardiac or pulmonary level shunt. Earliest appearance of agitated saline in the left atrium is noticeable around 5 beats after injection, which would favor pulmonary level. Aortic Valve * Trileaflet aortic valve with normal function. * No aortic stenosis. * No aortic regurgitation. Mitral Valve * Normal mitral valve structure and function. * No mitral regurgitation. * No mitral stenosis. Tricuspid Valve * Normal tricuspid valve structure and function. * Trace tricuspid regurgitation. * No evidence of pulmonary hypertension. Pulmonic Valve * Normal pulmonic valve structure and function. * Trace pulmonic regurgitation. Aorta * Normally sized aortic root. Pericardium * The pericardium appears normal. IVC * Normal IVC dimensions and inspiratory collapse. Pulmonary Artery * Normal visualized portions of the main pulmonary artery. Consult Discharge Plan - Plan Referrals: Kati Schofield CNP [Primary Care Provider] -
[2018-10-19] MEDS: *HR* Heparin 5,000 UNIT/ML VIAL SQ SCH (23:22)
[2018-10-20] MEDS ORDERED: Lidocaine Viscous Oral Soln 15 ML SOLUTION MM PRN (07:20)
[2018-10-20] MEDS ORDERED: 0.9 % Sodium Chloride 500 ML IVC ONE (07:21)
[2018-10-20] MEDS: *HR* Midazolam HCl 5 MG/5 ML VIAL IVP PRN ×2 (08:10→08:15)
[2018-10-20] MEDS: *HR* FentaNYL (PF) 100 MCG/2 ML VIAL IVP PRN ×2 (08:10→08:15)
[2018-10-20] MEDS: Nicotine 21 MG PATCH.TD24 TD SCH (09:11)
[2018-10-20] MEDS: Aspirin 81 MG TAB.CHEW PO SCH (09:11)
[2018-10-20] MEDS: PHENobarbital 32.4 MG TABLET PO SCH ×2 (09:11→20:37)
--- NOTE | 2018-10-20 11:55 | Neurology Progress Note ---
Date of Encounter: 10/20/18 Time of Encounter: 11:52 Assessment and Plan (1) Acute CVA (cerebrovascular accident) Current Visit: Yes Status: Acute Clinically, the patient remained stable overnight. There are no new neurological deficits on today's exam. His strength is improving in the LUE and this mornign he is able to move his arm in a horizontal place but still unable to overcome gravity. This is an improvement from yesterdays assessment in which his left arm remained flaccid. New findings today on PAMELA of PFO with a right to left shunt. He was aspirin naive previously. With these findings and new CVA we are recommending c/w ASA therapy without the addition of oral anticoagulation. I discussed aggressive risk factor modification including smoking cessation, medication compliance with ASA and Statin and the need for rehabilitation. He reports that he will f/u with his primary neurologist and neurosurgeon at d/c regarding the extra-axial enhancing mass along the left parietal convexity with slight increase in size in the mass involving the right temporal calvarium Neurology will sign off at this time. Thank you for consulting [facility]. Please call should any further needs arise. Subjective Principal diagnosis: Acute CVA Interval history: The patient was seen in follow-up for an acute CVA. In brief, this is a 53-year-old male with complicated medical history including brain tumors and meningiomas. He presented yesterday with left-sided motor deficits, left facial droop. MRI positive for small infarct involving the right periventricular white matter extending along the right internal capsule without hemorrhage, mass effect or midline shift. The patient was seen and examined at the bedside this morning. The neurological exam reveals no further deficits today and he denies any new neurological sx. The left arm is no longer flaccid and he is now able to move his Lt arm in a horozontal plane but still unable to overcome gravity. A PAMELA was completed today and found a PFO with right to left shunt. These findings were discussed with the patient. I further discussed medication compliance, smoking cessation and aggressive risk factor modifications as well as the fact that he will most likely need PT d/t deficits from acute CVA. Objective - Constitutional Vitals: Temp Pulse Resp BP Pulse Ox 97.8 F 88 17 132/96 93 10/20/18 10:29 10/20/18 10:29 10/20/18 10:29 10/20/18 10:29 10/20/18 10:29 Exam: Examination: General Examination: *CONSTITUTIONAL: Alert and oriented x3, no acute distress *GENERAL APPEARANCE OF PATIENT ill appearing male who appears older than stated age *EYES: pupils equal, round, reactive to light and accommodation, conjunctiva clear *CARDIOVASCULAR no peripheral edema, distal temperature normal, dorsalis pedis pulses normal. See vitals Musculoskeletal: *GAIT AND STATION deferred *ASSESSMENT OF MUSCLE STRENGTH IN THE UPPER AND LOWER EXTREMITIES right deltoid, bicep, tricep, director of real estate strength, hip flexors ,anterior tibialis, dorsofle xion of the foot 4/5. - - Left deltoid, bicep, tricep, are weak but he is no longer flaccid. He is able to move his lt arm in a horizontal plane 2/5 strength but continues with diminished director of real estate strength. - - Lt hip flexors ,anterior tibialis, dorsoflexion of the foot 3/5 *MUSCLE TONE IN THE UPPER AND LOWER EXTREMITIES Lt arm is flaccid. No abnormal movements Neurological: *ORIENTATION to person, situation, time and place *RECURRENT AND REMOTE MEMORY intact *ATTENTION AND CONCENTRATION are normal *LANGUAGE FUNCTION no significant aphasia or dysarthia was noted. *FUND OF KNOWLEDGE aware of current events, past history, vocabulary *MENTAL attention span and concentration normal. *CN II optic fundi were normal, no papilledema noted. *CN III,IV, PERRLA extraocular eye movements were full, no nystagmus and no ptosis noted. Peripheral vision loss on the left side which is chronic *CN V shows normal sensation. Slight left facial droop *CN VII facial movement asymmetrically with decreased left sided innervation, upper and lower bilaterally. *CN VIII shows no significant hearing loss on exam *CN IX,,X palate elevated symmetrically *CN XI normal strength in the sternocleidomastoid muscles. Shoulder shrug was asymmetrical with left weakness *CN XII tongue protruded in the midline, with normal strength and movement. *SENSORY EXAMINATION light touch intact *REFLEXES: deep tendon reflexes were normal and symmetrical , grade 1/4 diffusely, no pathological reflexes were noted. *CEREBELLAR TESTING abnormal finger to nose; dysmetric when attempting to perform finger to nose with LUE, have normal heel/knee/valdivia; dysmetric noted and LLE *PAIN LEVEL 0/10 Results - Laboratory Findings CBC and BMP: 10/19/18 02:52 10/19/18 02:52 Abnormal lab findings: Abnormal lab results WBC 12.3 K/mcL (4.3-11.1) H 10/19/18 02:52 PT 12.9 Seconds (9.4-12.1) H 10/19/18 02:52 APTT 38.6 Seconds (26.0-36.0) H 10/19/18 02:52 Glucose 135 mg/dL (70-105) H 10/18/18 10:13 POC Glucose 139 mg/dL (70-99) H 10/18/18 09:57 5.7 % (-5.6) H 10/19/18 02:52 AST 10 Units/L (13-39) L 10/19/18 02:52 113 Units/L (34-104) H 10/19/18 02:52 36 mg/dL (40-59) L 10/19/18 02:52 37 mg/dL (40-59) L 10/19/18 02:52 Consult Discharge Plan - Plan Referrals: Kati Schofield, SECURITY OFFICER [Primary Care Provider] -
[2018-10-20] MEDS: *HR* Heparin 5,000 UNIT/ML VIAL SQ SCH (12:44)
--- NOTE | 2018-10-20 14:04 | Internal Med Progress Note ---
Hospitalist Progress Note - Encounter Date of Encounter: 10/20/18 Time of Encounter: 10:20 - Subjective Interval History: Pt was seen and examined at bed side. He just came back from PAMELA. Denied any CP. Still has weakness in LUE and LLE - Exam Vitals: Temp Pulse Resp BP Pulse Ox 97.8 F 88 17 132/96 93 10/20/18 10:29 10/20/18 10:29 10/20/18 10:29 10/20/18 10:29 10/20/18 10:29 Exam: Gen: Alert, awake, Oriented to time,place and person Chest: Diminished breath sounds B/L, No wheezing, No crackles, No rales Heart: S1S2+ RRR No murmurs Abd: Soft, NT, BS +, No organomegaly Ext: trace edema, pulses are palpable, No calf tenderness Neuro : Left UE / LE motor strength 2-3/5. No loss of sensation. Normal strength in Rt UE/ LE Skin: No rash. - Assessment and Plan (1) Acute CVA (cerebrovascular accident) Current Visit: Yes Status: Acute Assessment and Plan: MRI showed Small acute infarct involving the right periventricular white matter extending along the right external capsule He is ASA naive.. so started him on ASA 81 mg He was not a candidate for tPA due to his prolonged duration of symptoms before he presented to ER Started him on Lipitor 80mg Reviewed FLP - LDL @ 96 PT / OT eval Reviewed 2 D Echo showed LVEF 60-65%, Rt to Left shunt PAMELA showed PFO with Rt to left shunt Will talk to Cardiology for further eval appreciate neurology recommendations (2) Brain tumor Current Visit: Yes Status: Acute Assessment and Plan: Past medical history of multiple brain tumor requiring craniotomy at [facility], MRI revealed Slight interval increase in size involving the extra-axial mass along the left frontal convexity as well as at the mass involving the right temporal calvarium. The sister stating that she is planning to call [facility] and make an earlier appointment for follow-up. resumed home seizure prophylaxis meds (3) PFO (patent foramen ovale) Current Visit: Yes Status: Acute Assessment and Plan: PAMELA showed PFO with right to left shunt Need to f.u with Card Dr. Burnett as an out pt will give them a call - Time Spent with Patient Total time spent is greater than 50% in coordination of care (as documented) at patient's floor/unit and/or counseling patient: Internal Medicine: Result - Labs CBC & Chem 7: 10/19/18 02:52 10/19/18 02:52 - ABG Interpretation ABG results: PT/INR, D-dimer PT 12.9 Seconds (9.4-12.1) H 10/19/18 02:52 Consult Discharge Plan - Plan Referrals: Kati Schofield CNP [Primary Care Provider] -
[2018-10-20] MEDS ORDERED: Chloraseptic Spray 177 ML BOTTLE MM PRN (22:35)
[2018-10-21] MEDS: *HR* Heparin 5,000 UNIT/ML VIAL SQ SCH ×3 (00:16→22:54)
[2018-10-21] MEDS: Nicotine 21 MG PATCH.TD24 TD SCH (10:25)
[2018-10-21] MEDS: PHENobarbital 32.4 MG TABLET PO SCH ×2 (10:25→20:38)
[2018-10-21] MEDS: Aspirin 81 MG TAB.CHEW PO SCH (10:25)
--- NOTE | 2018-10-21 14:35 | Internal Med Progress Note ---
Hospitalist Progress Note - Encounter Date of Encounter: 10/21/18 Time of Encounter: 14:33 - Subjective Interval History: Pt was seen and examined at bed side. Denied any CP. Still has weakness in LUE and LLE, over all slowly improving - Exam Vitals: Temp Pulse Resp BP Pulse Ox 97.7 F 80 17 136/96 93 10/21/18 11:10 10/21/18 11:10 10/21/18 11:10 10/21/18 11:10 10/21/18 11:10 Exam: Gen: Alert, awake, Oriented to time,place and person Chest: Diminished breath sounds B/L, No wheezing, No crackles, No rales Heart: S1S2+ RRR No murmurs Abd: Soft, NT, BS +, No organomegaly Ext: trace edema, pulses are palpable, No calf tenderness Neuro : Left UE / LE motor strength 2-3/5. No loss of sensation. Normal strength in Rt UE/ LE Skin: No rash. - Assessment and Plan (1) Acute CVA (cerebrovascular accident) Current Visit: Yes Status: Acute Assessment and Plan: MRI showed Small acute infarct involving the right periventricular white matter extending along the right external capsule He is ASA naive.. so started him on ASA 81 mg He was not a candidate for tPA due to his prolonged duration of symptoms before he presented to ER Started him on Lipitor 80mg Reviewed FLP - LDL @ 96 PT / OT eval Reviewed 2 D Echo showed LVEF 60-65%, Rt to Left shunt PAMELA showed PFO with Rt to left shunt Will talk to Cardiology for further eval appreciate neurology recommendations (2) Brain tumor Current Visit: Yes Status: Acute Assessment and Plan: Past medical history of multiple brain tumor requiring craniotomy at [facility], MRI revealed Slight interval increase in size involving the extra-axial mass along the left frontal convexity as well as at the mass involving the right temporal calvarium. The sister stating that she is planning to call [facility] and make an earlier appointment for follow-up. resumed home seizure prophylaxis meds (3) PFO (patent foramen ovale) Current Visit: Yes Status: Acute Assessment and Plan: PAMELA showed PFO with right to left shunt Need to f.u with Card Dr. Burnett as an out pt will give them a call - Time Spent with Patient Total time spent is greater than 50% in coordination of care (as documented) at patient's floor/unit and/or counseling patient: Internal Medicine: Result - Labs CBC & Chem 7: 10/19/18 02:52 10/19/18 02:52 - ABG Interpretation ABG results: PT/INR, D-dimer PT 12.9 Seconds (9.4-12.1) H 10/19/18 02:52 Consult Discharge Plan - Plan Referrals: Kati Schofield CNP [Primary Care Provider] -
[2018-10-21] MEDS ORDERED: Sennosides/Docusate Sodium TABLET PO PRN (15:29)
[2018-10-22] MEDS: Aspirin 81 MG TAB.CHEW PO SCH (10:55)
[2018-10-22] MEDS: Nicotine 21 MG PATCH.TD24 TD SCH (10:56)
[2018-10-22] MEDS: PHENobarbital 32.4 MG TABLET PO SCH (10:56)
[2018-10-22 11:16] VITALS: BP 148/97
--- NOTE | 2018-10-22 12:16 | Discharge Summary ---
- NOTES TO OUTPATIENT PROVIDER Notes to Outpatient Provider: f/u with PCP in one week. f/u with Neurology in 2-4 weeks. f/u with Cardiology Dr. Burnett in 2-4 weeks regarding your PFO. Please quit smoking Date of Encounter: 10/22/18 Time of Encounter: 12:08 - Discharge Diagnosis (1) Acute CVA (cerebrovascular accident) Priority: Primary Status: Acute (2) Brain tumor Priority: Secondary Status: Acute (3) PFO (patent foramen ovale) Priority: Secondary Status: Acute (4) Tobacco dependence Priority: Secondary Status: Chronic Hospital course: Mr. 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 He CT of head did not show any acute abnormalities other than chronic postsurgical changes with some adjacent white matter gliosis and encephalomalacia. He did go for MRI of Brain which showed acute CVA involving the right periventricular white matter extending along the right external capsule He was admitted in the hospital placed him on quality assurance monitor final. Continued Neuro checks. MRI showed Small acute infarct involving the right periventricular white matter extending along the right external capsule. He was ASA naive, so started him on ASA 81 mg and Lipitor 80mg HS. He was not a candidate for tPA due to his prolonged duration since the onset of symptoms before he presented to ER. Pt was evaluated by Neurologist who recommend to continue ASA and Lipitor. His 2 D Echo showed LVEF 60-65%, Rt to Left shunt. So he did go for PAMELA which showed PFO with right to left shunt. Regarding this PFO, I recommended him to f/u with Cardiology Dr. Burnett as an out pt to discuss about further treatment options. Pt was evaluated by PT / OT who recommend swing bed placement for intensive PT / OT. Pt still have significant weakness in left upper extremity and lower extremity. Will d/c him to ECF today in stable condition today. - Time Spent with Patient Total time spent providing and/or coordinating discharge services: - Discharge Medications Prescriptions: New Aspirin 81 mg PO DAILY #30 tab.chew Atorvastatin Calcium [Lipitor] 80 mg PO HS #30 tab Polyethylene Glycol 3350 [MiraLAX] 17 gm PO DAILY PRN powd.pack PRN Reason: Constipation Nicotine Patch [Nicoderm] 21 mg TD DAILY #30 patch.td24 Sennosides/Docusate Sodium [Senna Plus] 1 each PO BID PRN tablet PRN Reason: Constipation Continued PHENobarbital [Phenobarbital] 97.2 mg PO QAM Gemfibrozil [Lopid] 600 mg PO BID Cyanocobalamin (Vitamin B-12) [Vitamin B-12] 1,000 mcg PO DAILY Ergocalciferol (VITAMIN D2) [Vitamin D2] 50,000 units PO SA PHENobarbital [Phenobarbital] 64.8 mg PO HS Home Medications: Gemfibrozil [Lopid] 600 mg PO BID 10/18/18 [History] PHENobarbital [Phenobarbital] 97.2 mg PO QAM 10/18/18 [History] Cyanocobalamin (Vitamin B-12) [Vitamin B-12] 1,000 mcg PO DAILY 10/19/18 [History] Ergocalciferol (VITAMIN D2) [Vitamin D2] 50,000 units PO SA 10/19/18 [History] PHENobarbital [Phenobarbital] 64.8 mg PO HS 10/19/18 [History] Aspirin 81 mg PO DAILY #30 tab.chew 10/22/18 [Rx] Atorvastatin Calcium [Lipitor] 80 mg PO HS #30 tab 10/22/18 [Rx] Nicotine Patch [Nicoderm] 21 mg TD DAILY #30 patch.td24 10/22/18 [Rx] Polyethylene Glycol 3350 [MiraLAX] 17 gm PO DAILY PRN powd.pack 10/22/18 [Rx] Sennosides/Docusate Sodium [Senna Plus] 1 each PO BID PRN tablet 10/22/18 [Rx] Allergies/Adverse Reactions: Allergy/AdvReac Type Severity Reaction Status Date / Time No Known Allergies Allergy Verified 10/19/18 13:37 Date of admission: 10/19/18 09:51 Primary care physician: Kati Schofield CNP Consults: 10/18/18 12:40 Consult to Neurology [CONS] Stat Consulting Provider: Neurology [facility] Reason for Consult: stroke concern Time Notified: 12:41 Call Completed: Yes 10/18/18 18:12 Consult to Occupational Therapy [CONS] Routine Comment: Evaluate, develop and implement POC Reason for Consult: cva Does patient have active BEDREST order?: Yes Is patient medically & hemodynamically stable?: No Patient assessed for mobility or mobilized this visit?: No Consult to Physical Therapy [CONS] Routine Comment: Evaluate, develop and implement POC Reason for Consult: cva Does patient have active BEDREST order?: Yes Is patient medically & hemodynamically stable?: No Patient assessed for mobility or mobilized this visit?: No 10/19/18 17:24 Consult to Bag Bundler [CONS] Routine Reason for SW Consult: PT/OT recommended inpt swing/rehab - Constitutional Vitals: Temp Pulse Resp BP Pulse Ox 97.5 F L 87 16 148/97 93 10/22/18 11:15 10/22/18 11:15 10/22/18 11:15 10/22/18 11:15 10/22/18 11:15 General appearance: Present: A&O X 3 Exam: Gen: Alert, awake, Oriented to time,place and person Chest: Diminished breath sounds B/L, No wheezing, No crackles, No rales Heart: S1S2+ RRR No murmurs Abd: Soft, NT, BS +, No organomegaly Ext: trace edema, pulses are palpable, No calf tenderness Neuro : Left UE / LE motor strength 2-3/5. No loss of sensation. Normal strength in Rt UE/ LE Skin: No rash. - Patient Status Disposition: Transfer SNF Condition: Good Overall status at discharge: patient is back to baseline - Discharge Instructions Follow Up With: Kati Schofield CNP [Primary Care Provider] - 10/29/18 1:00 pm (Appointment will be with Deidre Benitez due to Physician being out of office. ) Noé Burnett MD [Partnered Physician] - - Diet and Activity Activity: increase activity as tolerated Diet: low salt diet
--- NOTE | 2018-10-22 12:19 | Physician Discharge Referral ---
ExtendedCare Referral Info Transfer To: [facility] - Diagnosis (1) Acute CVA (cerebrovascular accident) Status: Acute (2) Brain tumor Status: Acute (3) PFO (patent foramen ovale) Status: Acute (4) Tobacco dependence Status: Chronic - Transfer Medications Prescriptions: Aspirin 81 mg PO DAILY #30 tab.chew Atorvastatin Calcium [Lipitor] 80 mg PO HS #30 tab Nicotine Patch [Nicoderm] 21 mg TD DAILY #30 patch.td24 Home Medications: Gemfibrozil [Lopid] 600 mg PO BID 10/18/18 [History] PHENobarbital [Phenobarbital] 97.2 mg PO QAM 10/18/18 [History] Cyanocobalamin (Vitamin B-12) [Vitamin B-12] 1,000 mcg PO DAILY 10/19/18 [History] Ergocalciferol (VITAMIN D2) [Vitamin D2] 50,000 units PO SA 10/19/18 [History] PHENobarbital [Phenobarbital] 64.8 mg PO HS 10/19/18 [History] Aspirin 81 mg PO DAILY #30 tab.chew 10/22/18 [Rx] Atorvastatin Calcium [Lipitor] 80 mg PO HS #30 tab 10/22/18 [Rx] Nicotine Patch [Nicoderm] 21 mg TD DAILY #30 patch.td24 10/22/18 [Rx] Polyethylene Glycol 3350 [MiraLAX] 17 gm PO DAILY PRN powd.pack 10/22/18 [Rx] Sennosides/Docusate Sodium [Senna Plus] 1 each PO BID PRN tablet 10/22/18 [Rx] Allergies/Adverse Reactions: Allergy/AdvReac Type Severity Reaction Status Date / Time No Known Allergies Allergy Verified 10/19/18 13:37 - Respiratory Orders Smoking Cessation: Smoking cessation has been advised. For more information, call the [place] Tobacco Quit Line at 7-746-FFFE-NOW. CERTIFICATION: I certify that the transfer of the above named patient to an Extended Care Facility is necessary for the continuing treatment of the diagnosis listed. The above information is true and accurate reflection of patient's current condition. Confidential - Redisclosure prohibited without a patient's written consent.
== END 2018-10-22 16:51 | DRG 65 ==
LOC: EMEROOARM 09:49 → 3BNU 09:49 → SUATTDRO 10-19 09:51
PROVIDERS: ADMIT Internal Medicine Nephrology; ATTEND Family Medicine